=== PATIENT | female | born 1985 | race Asian ===

== ENCOUNTER 2020-03-27 09:20 | Outpatient (CLI) | payer OTHER ==
--- NOTE | 2020-03-28 16:44 | Ultrasound Report ---
LIMITED ULTRASOUND OF RIGHT BREAST: 03/27/2020 CLINICAL: Diffuse right breast pain. Comparison is made to exams dated: 03/27/2020 mammogram - [facility], 06/13/2018 devorah mogram, 06/13/2018 ultrasound biopsy, 05/31/2018 mammogram, and 05/25/2018 ultrasound - [facility]. Ultrasound of the right breast four quadrants and retroareolar regions was performed. There are multiple cysts and fibrous tissue throughout the right breast. In the right breast 1:00 position, 3 cm from the nipple, there is a 3 x 3 x 5 mm cyst. In the right breast 9:00 position there is a 10 x 5 x 8 mm hypoechoic focus which is likely a cluster of cysts but has some internal echoes, possibly septations, possibly a fibroadenoma. This is wider t herron tall and demonstrates posterior acoustic shadowing. In the right breast 10:00 position 4 cm from the nipple, there is a 6 x 3 x 5 mm hypoechoic focus. IMPRESSION: PROBABLY BENIGN The above findings are probably benign, recommend ultrasound in 6 months to ensure stability. This exam was interpreted at Station ID: [id number]. Electronically Signed By: Edwardo Mccoy acr/:03/27/2020 13:12:23 Ultrasound BI-RADS: 3 Probably benign BI-RADS CATEGORY: (3) - 3 Ultrasound [id number] 6 month follow-up LATERALITY: (B)
--- NOTE | 2020-03-28 16:44 | Mammography Report ---
BILATERAL DIGITAL DIAGNOSTIC MAMMOGRAM 3D/2D: 03/27/2020 CLINICAL: Diffuse right breast pain. Comparison is made to exams dated: 06/13/2018 mammogram and 05/31/2018 mammogram - [facility]. The tissue of both breasts is extremely dense, which lowers the sensitivity of mammography. There is an asymmetry with an indistinct margin in the right breast anterior depth superior region se en on the mediolateral oblique view only. This resolves with additional views. No other significant masses, calcifications, or other findings are seen in either breast. IMPRESSION: INCOMPLETE: NEEDS ADDITIONAL IMAGING EVALUATION No mammographic evidence of malignancy. Recommend US given history of pain. This exam was interpreted at Station ID: [id number]. NOTE: For mammograms, a report in lay terms will be sent to the patient. Approximately 15% of breast malignancies will not be visualized mammographically. In the management of a palpable breast mass, a negative mammogram must not discourage biopsy of a clinically suspicious lesion. Electronically Signed By: Edwardo Mccoy acr/:03/27/2020 12:27:22 ACR BI-RADS Category 0: Incomplete 3340F PARENCHYMAL PATTERN: (VD) - The breast(s) demonstrate(s) extremely dense parenchyma, limiting the sen sitivity of mammography. BI-RADS CATEGORY: (0) - 0 Ultrasound [id number] Immediate follow-up LATERALITY: (B)
== END 2020-03-27 09:21 | disposition home or self-care (01) ==
LOC: DI 09:20
PROVIDERS: ATTEND Nurse Practitioner Family
DX: N64.4 Mastodynia (principal); N60.11 Diffuse cystic mastopathy of right breast
CPT/HCPCS: 76642; 77066

== ENCOUNTER 2020-05-17 11:14 | Outpatient (CLI) | payer OTHER ==
[2020-05-17 18:19] LABS: BASOPHILS % (AUTO) 0.8 %; EOSINOPHILS # (AUTO) 0.1 10^3/uL (0.0-0.7); HGB - HEMOGLOBIN 9.9 g/dL (12.0-16.0); LYMPHOCYTES # (AUTO) 2.2 10^3/uL (1.5-3.5); LYMPHOCYTES % (AUTO) 45.8 %; MEAN CORPUSCULAR HEMOGLOBIN 18.8 pg (27.0-31.0); MEAN CORPUSCULAR HGB CONC 28.9 g/dL (32.0-36.0); MONOCYTES # (AUTO) 0.4 10^3/uL (0.0-1.0); NEUTROPHILS # (AUTO) 2.1 10^3/uL (1.5-6.6); PLT - PLATELET COUNT 160 10^3/uL (130-450); RED BLOOD COUNT 5.26 10^6/uL (4.20-5.40); RED CELL DISTRIBUTION WIDTH 23.8 % (12.0-15.0); WHITE BLOOD COUNT 4.9 x10^3/uL (4.8-10.8)
[2020-05-17 21:17] LABS: PLATELET MORPHOLOGY NORMAL APPEARANCE (NORMAL)
[2020-05-17 21:19] LABS: PLATELET ESTIMATE, MANUAL NORMAL (130-450,000) (NORMAL)
== END 2020-05-17 23:59 | disposition home or self-care (01) ==
LOC: LAB.WCP 11:14
PROVIDERS: ATTEND Nurse Practitioner Family
DX: D56.9 Thalassemia, unspecified (principal)
CPT/HCPCS: 36415; 85025

== ENCOUNTER 2020-06-28 09:56 | Outpatient (CLI) | payer OTHER ==
--- NOTE | 2020-06-28 11:21 | CT Report ---
PROCEDURE: CHEST WO INDICATIONS: LUNG NODULE TECHNIQUE: Noncontrast 5 mm thick sections acquired from the pulmonary apices to the posterior costophrenic angl es. 7 mm thick coronal and sagittal MIP reformats were then acquired. For radiation dose reduction, the following was used: automated exposure control, adjustment of mA and/or kV according to patient size. COMPARISON: None. FINDINGS: Image quality: Excellent. Lungs and pleura: There is a 5 mm nodule in the left lower lobe abutting the major fissure (series 4 image 143/323). No acute air space opacities. No pleural effusions or pneumothorax. Central and pe ripheral airways are patent and normal in caliber. Mediastinum: Heart size is normal. No pericardial effusion. No mediastinal adenopathy by size crit eria. Thoracic aorta and central pulmonary arteries are normal in size. Esophagus is normal in stan fidelia. No hiatal hernia. Bones and chest wall: No suspicious bony lesions. No vertebral body compression fractures. No axil kristin or supraclavicular adenopathy by size criteria. The thyroid is normal in size. Abdomen: Gallbladder is surgically removed. Visualized upper abdominal solid organs and bowel loops appear normal in the absence of contrast. IMPRESSION: 1. A 5 mm nodule in the left lower lobe abutting the major fissure. Please see enclosed follow-up aug mentation. Fleischner Society criteria for SOLID lung nodule followup. Nodule size (mm) Low-risk patient High-risk patient ?4 No follow-up needed Follow-up at 12 mo; if no change, no further follow-up >4-[address] at 12 mo; if no change, no further follow-up needed. Initial follow-up CT at 6-12 mo, then 18-24 mo if no change. >6-8 Initial follow-up CT at 6-12 mo, then 18-24 mo if no change. Initial follow-up CT at 3-6 mo, then 9-12 mo and 24 mo if no change. >8 Follow-up CT at 3, 9, 24 mo. Or PET and/or biopsy. Same as for low-risk pts. Reviewed by: Lenore William MD on 06/28/2020 11:19 AM PST Approved by: Lenore William MD on 06/28/2020 11:19 AM PST Station ID: [id number]
== END 2020-06-28 09:57 | disposition home or self-care (01) ==
LOC: DI 09:56
PROVIDERS: ATTEND Nurse Practitioner Family
DX: R91.1 Solitary pulmonary nodule (principal)

== ENCOUNTER 2020-09-22 10:38 | Outpatient (CLI) | payer OTHER | END 2020-09-22 10:39 | disposition critical access hospital (66) | LOC: EMS 10:38 | DX: M54.2 Cervicalgia (principal); R07.89 Other chest pain; R42 Dizziness and giddiness; S09.90XA Unspecified injury of head, initial encounter; V89.2XXA Person injured in unspecified motor-vehicle accident, traffic, initial encounter; Y93.89 Activity, other specified; Y92.414 Local residential or business street as the place of occurrence of the external cause | CPT/HCPCS: A0425; A0429 ==

== ENCOUNTER 2020-09-22 10:59 | Emergency (ER) | payer OTHER ==
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
--- OUTSIDE RECORDS SUMMARY | 2020-09-22 11:07 | EXTERNAL MEDICAL SUMMARY RPT | Continuity of Care Document ---
:1985 Demographics Phone Unavailable Preferred Language Micronesian Marital Status Unknown Roman Catholic Affiliation Unknown Race Unknown Ethnic Group Unknown Author Organization [facility] Address [address] [place] [address] Phone Care Team Providers Name Role Phone Luma Unavailable Unavailable Medications date description facility 20200715 Ondansetron 4 MG Disintegrating Tablet [facility] Procedures date description facility 20200715 [facility] Vital Signs date measurement value source 20200715 weight_standard 58.06 lb 20200715 weight_metric 26.34 kg 20200715 temperature_standard 98.3 F 20200715 temperature_metric 36.83 C 20200715 respiration_rate 17 /min 20200715 heart_rate 72 /min 20200715 BP_systolic 114 mm[Hg] 20200715 BP_diastolic 71 mm[Hg]
[2020-09-22] MEDS ORDERED: KETOROLAC 30 MG/ML VIAL IM STA (11:18)
[2020-09-22] MEDS ORDERED: ACETAMINOPHEN 325 MG TABLET PO STA (11:18)
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
[2020-09-22] MEDS ORDERED: methocarbamoL 500 MG TABLET PO STA (12:57)
[2020-09-22] MEDS ORDERED: HYDROcod/ACETAM 5/325 MG TABLET PO STA (12:57)
[2020-09-22 13:17] VITALS: BP 129/83
== END 2020-09-22 13:25 | disposition home or self-care (01) ==
LOC: EDUNIT# → ED 10:59
DX: S16.1XXA Strain of muscle, fascia and tendon at neck level, initial encounter (principal); S39.012A Strain of muscle, fascia and tendon of lower back, initial encounter; S10.91XA Abrasion of unspecified part of neck, initial encounter; V43.52XA Car driver injured in collision with other type car in traffic accident, initial encounter; W22.11XA Striking against or struck by driver side automobile airbag, initial encounter; Y92.410 Unspecified street and highway as the place of occurrence of the external cause
CPT/HCPCS: 70450; 72125; 72128; 72131; 96372; 99284; A9270